=== PATIENT | female | born 1980 | race Caucasian/White ===

== ENCOUNTER 2017-07-15 19:17 | Emergency (ER) | payer OTHER ==
[2017-07-15 19:23] VITALS: BP 118/64; BMI 29.2
--- NOTE | 2017-07-15 21:52 | DR.TOOTHHP ---
HPI - Time Seen Time seen: 21:50 - Primary Care Physician Primary Care Physician: [id number] - Complaints Chief Complaint:: "i have a tooth that is broke off and next to it i have a blood bubble that is causing me alot of pain o/s 2 days ago. i tried popping it but that didn't work." Self Treatment fo Chief Complaint: none - Reviewed Nurses Notes Reviewed: Yes - Source History Provided: Patient - Mode of Arrival Mode of Arrival: Ambulatory - Timing Onset of Chief Complaint: 07/13/17 PMH - PMH Past Medical History: Yes Past Medical History: Anxiety, Depression, Schizophrenia Past Surgical History: Yes Surgical History: Appendectomy - Family History History of Family Medical Conditions: Yes Family Medical History: Cancer - Social History Type of Tobacco Use: Cigarettes Alcohol Use: Occasionally Do you use any recreational Drugs:: No Lives Where: Home - infectious screening Have you traveled outside the country in the last 6 months?: No Isolation: Standard PE - Vital Signs Vitals: Temperature 98.8 F Pulse Rate 84 Respiratory Rate 18 Blood Pressure 118/64 O2 Sat by Pulse Oximetry 99 - Discharge Plan Condition: Stable - Follow ups/Referrals Follow ups/Referrals: NFD,None [Primary Care Provider] - 3 days - Instructions
== END 2017-07-15 22:05 | disposition left against medical advice (07) ==
LOC: ER 19:27
DX: K08.89 Other specified disorders of teeth and supporting structures (principal)
CPT/HCPCS: 99281